=== PATIENT | female | born 2000 ===

== ENCOUNTER 2023-04-08 13:47 | Outpatient (CLI) | payer OTHER ==
[~2023-04-08] VITALS: Ht 167.6 cm; Wt 92.0 kg
[2023-04-08] MEDS ORDERED: HOME MED LIST COMPLETE! XX SCH (14:05)
[2023-04-08] MEDS ORDERED: TUMS750C22 PO (14:05)
[2023-04-08] MEDS ORDERED: PRENTAB9 PO (14:05)
[2023-04-08 14:07] VITALS: BP 118/78
== END 2023-04-08 15:10 | disposition home or self-care (01) ==
LOC: EDBD 13:47 → M LDO 13:47
PROVIDERS: ATTEND Advanced Practice Midwife
DX: O36.8130 Decreased fetal movements, third trimester, not applicable or unspecified (principal); O47.1 False labor at or after 37 completed weeks of gestation; O26.893 Other specified pregnancy related conditions, third trimester; N89.8 Other specified noninflammatory disorders of vagina; Z3A.39 39 weeks gestation of pregnancy
CPT/HCPCS: 59025; G0463

== ENCOUNTER 2023-04-22 10:25 | Inpatient (IN) | payer OTHER ==
[2023-04-22] VITALS (10 sets, daily range): BP systolic 103–140; BP diastolic 53–90
[~2023-04-22] VITALS: Ht 167.6 cm; Wt 93.3 kg
[~2023-04-22 10:25] MED LIST: PRENTAB9 PO; TUMS750C22 PO
[2023-04-22] MEDS ORDERED: METHYLERGONOVINE MALEATE 0.2MG/ML 1ML VIAL IM PRN (10:55)
[2023-04-22] MEDS ORDERED: LIDOCAINE 1% MDV 20ML VIAL INFIL PRN (10:55)
[2023-04-22] MEDS ORDERED: TRANEXAMIC ACID INJection 1,000 MG in NS 100 ML IV PRN (10:55)
[2023-04-22] MEDS ORDERED: miSOPROStol 50MCG 1/2 TABLET PO ONE (10:55)
[2023-04-22] MEDS ORDERED: OXYTOCIN DRIP 30 UNITS in IV 1 EA IV PRN ×4 (10:55)
[2023-04-22] MEDS ORDERED: OXYTOCIN INJ 10UNITS/ML 1ML VIAL IM PRN (10:55)
[2023-04-22] MEDS ORDERED: CARBOPROST TROMETHAMINE 250 MCG/ML AMP IM PRN (10:55)
[2023-04-22] MEDS ORDERED: ACET325C5 PO (10:57)
[2023-04-22] MEDS ORDERED: HOME MED LIST COMPLETE! XX SCH (11:00)
[2023-04-22 11:32] LABS: HEMATOCRIT 34.8 % (36.0-47.0); HEMOGLOBIN 11.9 g/dl (12.0-15.5); MEAN CORPUSCULAR HEMOGLOBIN 30.4 pg (27.0-33.0); MEAN CORPUSCULAR HGB CONC 34.2 g/dl (32.0-36.5); MEAN CORPUSCULAR VOLUME 88.8 fl (80.0-96.0); PLATELET COUNT, AUTOMATED 205 10^3/uL (150-450); RED BLOOD COUNT 3.92 10^6/uL (4.00-5.40); WHITE BLOOD COUNT 12.5 10^3/uL (4.0-10.0)
[2023-04-22] MEDS: miSOPROStol 50MCG 1/2 TABLET PO SCH ×2 (15:59→22:09)
[2023-04-22] MEDS: LR 1,000 ML IV SCH (21:06)
[2023-04-22] MEDS ORDERED: PROMETHAZINE 25MG/ML 1ML VIAL IV PRN (22:05)
[2023-04-22] MEDS ORDERED: NALBUPHINE HCL 10 MG/ML 1ML AMP IV PRN (22:05)
[2023-04-23] VITALS (60 sets, daily range): BP systolic 90–189; BP diastolic 49–100
[2023-04-23] MEDS: LR 1,000 ML IV SCH ×5 (01:04→21:29)
[2023-04-23] MEDS: miSOPROStol 50MCG 1/2 TABLET PO SCH (02:16)
[2023-04-23] MEDS ORDERED: OXYTOCIN DRIP 30 UNITS in IV 1 EA IV SCH (07:20)
[2023-04-23] MEDS ORDERED: ONDANSETRON 4MG 2ML VIAL IV PRN ×2 (07:50)
[2023-04-23] MEDS ORDERED: diphenhydrAMINE 50MG/ML VIAL IV PRN ×2 (07:50)
[2023-04-23] MEDS ORDERED: EPIDURAL/PCA KEYS XX PRN ×2 (07:50)
[2023-04-23] MEDS ORDERED: LR 500 ML IV PRN ×2 (07:50)
[2023-04-23] MEDS ORDERED: ePHEDrine SULFATE 25 MG/5 ML(5MG/ML) SYRINGE IVP PRN (07:50)
[2023-04-23] MEDS ORDERED: NALOXONE INJ 0.4MG/1ML VIAL IV PRN ×2 (07:50)
[2023-04-23] MEDS: FENTANYL/ROPIVACAINE/NACL BAG 100 ML EPIDURAL SCH ×2 (08:24→17:09)
[2023-04-23] MEDS: ePHEDrine SULFATE 25 MG/5 ML(5MG/ML) SYRINGE IVP PRN ×3 (09:49→10:01)
[2023-04-23 22:30] LABS: CORD GAS HCO3 A 19.1 MMOL/L; CORD GAS O2 SAT A 50.7 %; CORD GAS PCO2 A 49.6 mmHg; CORD GAS PH A 7.204 UNITS; CORD GAS PO2 A 24.9 mmHg; CORD GAS SBC A 16.3 MMOL/L; CORD GAS TCO2 A 20.6 MMOL/L
[2023-04-23 22:32] LABS: CORD GAS ABE V -9.1; CORD GAS O2 SAT V 47.6 %; CORD GAS PCO2 V 49.6 mmHg; CORD GAS PH V 7.202 UNITS; CORD GAS PO2 V 24.9 mmHg; CORD GAS SBC V 16.2 MMOL/L; CORD GAS TCO2 V 20.6 MMOL/L
[2023-04-23] MEDS ORDERED: MOM 30ML SUSPENSION UDC PO PRN (22:40)
[2023-04-23] MEDS ORDERED: DIBUCAINE 1% OINTMENT 30GM TOP PRN (22:40)
[2023-04-24] MEDS: IBUPROFEN 800 MG TAB PO PRN ×2 (00:51→13:59)
[2023-04-24] MEDS: DOCUSATE SODIUM 100MG CAPSULE PO PRN ×2 (01:28→21:17)
[2023-04-24] MEDS: ACETAMINOPHEN 500 MG TAB PO PRN ×3 (01:31→20:22)
[2023-04-24 06:00] VITALS: BP 109/57
[2023-04-24] MEDS: PRENATAL VITAMINS CHEWABLE TABLET PO SCH (08:16)
[2023-04-24 17:58] LABS: HEMATOCRIT 30.6 % (36.0-47.0); HEMOGLOBIN 10.2 g/dl (12.0-15.5); MEAN CORPUSCULAR HEMOGLOBIN 30.3 pg (27.0-33.0); MEAN CORPUSCULAR HGB CONC 33.3 g/dl (32.0-36.5); MEAN CORPUSCULAR VOLUME 90.8 fl (80.0-96.0); PLATELET COUNT, AUTOMATED 206 10^3/uL (150-450); RED BLOOD COUNT 3.37 10^6/uL (4.00-5.40)
[2023-04-24 17:59] LABS: URIC ACID 4.6 MG/DL (3.1-7.8)
[2023-04-24 18:00] VITALS: BP 129/78; O2SAT 97
[2023-04-24 18:01] LABS: LDH LACTATE DEHYDROGENASE 200 U/L (120-246)
[2023-04-24 18:02] LABS: ALBUMIN 2.3 G/DL (3.2-5.2); ALKALINE PHOSPHATASE 93 U/L (46-116); ALT/SGPT < 9 U/L (7.0-40); AST/SGOT 32 U/L (<34); BILIRUBIN,TOTAL 0.3 MG/DL (0.3-1.2); BLOOD UREA NITROGEN 6 MG/DL (9-23); CALCIUM LEVEL 7.8 MG/DL (8.5-10.1); CARBON DIOXIDE LEVEL 23 MMOL/L (20-31); CHLORIDE LEVEL 110 MMOL/L (98-107); CREATININE FOR GFR 0.54 MG/DL (0.55-1.30); GLOMERULAR FILTRATION RATE > 60.0 (>60); GLUCOSE, FASTING 85 MG/DL (60-100); POTASSIUM SERUM 3.9 MMOL/L (3.5-5.1); SODIUM LEVEL 140 MMOL/L (136-145); TOTAL PROTEIN 4.8 G/DL (5.7-8.2)
[2023-04-25 06:00] VITALS: BP 111/54; O2SAT 97
[2023-04-25] MEDS: PRENATAL VITAMINS CHEWABLE TABLET PO SCH (07:23)
[2023-04-25] MEDS: IBUPROFEN 800 MG TAB PO PRN (07:23)
[2023-04-25] MEDS ORDERED: MEASLES,MUMPS,RUBELLA VACCINE INJ (MMR-II) SC.IMMUN ONE (09:00)
[2023-04-25] MEDS ORDERED: COLA100C5 PO (12:24)
[2023-04-25] MEDS ORDERED: ACET-683 PO (12:24)
[2023-04-25] MEDS ORDERED: IBUP80TA PO (12:24)
== END 2023-04-25 15:10 | disposition home or self-care (01) | DRG 807 ==
LOC: M LDI 10:25 → M OBS 04-24 02:05
PROVIDERS: ADMIT Obstetrics & Gynecology; ATTEND Obstetrics & Gynecology
PROC: 3E0P7GC Introduction of Other Therapeutic Substance into Female Reproductive, Via Natural or Artificial Opening (ICD-10-PCS; 2023-04-22)
PROC: 10E0XZZ Delivery of Products of Conception, External Approach (ICD-10-PCS; principal; 2023-04-23)
PROC: 0KQM0ZZ Repair Perineum Muscle, Open Approach (ICD-10-PCS; 2023-04-23)
DX: O48.0 Post-term pregnancy (principal); Z37.0 Single live birth; Z3A.41 41 weeks gestation of pregnancy; O76 Abnormality in fetal heart rate and rhythm complicating labor and delivery; O69.81X0 Labor and delivery complicated by cord around neck, without compression, not applicable or unspecified; O70.1 Second degree perineal laceration during delivery